=== PATIENT | male | born 1965 | race African-American/Black ===

== ENCOUNTER 2017-07-19 13:00 | Emergency (ER) | payer OTHER ==
[~2017-07-19] VITALS: Ht 180.3 cm; Wt 82.6 kg
[2017-07-19] MEDS ORDERED: SODIUM CHLORIDE 0.9% 1,000 ML IVB ONE (13:13)
[2017-07-19] MEDS ORDERED: PANTOPRAZOLE 40 MG/10 ML VIAL IV ONE (13:15)
[2017-07-19 14:05] LABS: Basophils # (auto) 0.1 uL; Basophils % (auto) 3.3 % (0.0-2.0); Eosinophils # (auto) 0 uL; Eosinophils % (auto) 0.7 % (0.0-7.0); Hematocrit 41.8 % (41.0-53.0); Hemoglobin 13.9 g/dL (13.5-17.5); Lymphocytes # (auto) 1.3 uL; Lymphocytes % (auto) 40.9 % (10.0-50.0); Mean Corpuscular Hemoglobin 30.2 pg (28.0-32.0); Mean Corpuscular Hgb Conc. 33.3 g/dL (32.0-36.0); Mean Corpuscular Volume 90.7 fL (80.0-100.0); Monocytes # (auto) 0.2 uL; Monocytes % (auto) 7.4 % (0.0-12.0); Neutrophils # (auto) 1.5 uL; Neutrophils % (auto) 47.7 % (37.0-80.0); Nucleated Red Blood Cells % 0.3 %; Platelet Count (auto) 175 10^3/uL (140-450); Red Cell Distribution Width 12.9 % (11.8-14.3); White Blood Cell 3.2 10^3/uL (4.4-10.8)
[2017-07-19 14:13] LABS: Alanine Aminotransferase 25 U/L (16-61); Albumin 4.4 g/dL (3.4-5.0); Alkaline Phosphatase 133 U/L (45-117); Anion Gap 9 (5-15); Aspartate Aminotransferase 33 U/L (15-37); BUN/Creatinine Ratio 9.8; Bilirubin, Total 1.1 mg/dL (0.2-1.0); Blood Urea Nitrogen 10 mg/dL (7-18); Calcium 9.2 mg/dL (8.5-10.1); Carbon Dioxide 27 mmol/L (21-32); Chloride 101 mmol/L (98-107); GFR African American 100 mL/min; GFR Non-African American 83 mL/min; Glucose 90 mg/dL (74-106); Magnesium 2.5 mg/dL (1.6-2.6); Potassium 4.1 mmol/L (3.5-5.1); Sodium 137 mmol/L (136-145); Total Protein 9.1 g/dL (6.4-8.2)
[2017-07-19 15:23] VITALS: BP 135/90
== END 2017-07-19 15:05 | disposition home or self-care (01) ==
LOC: EDBD 13:00 → ER 13:00 → EDSEX 13:00 → ER 15:05
DX: R07.89 Other chest pain (principal); I10 Essential (primary) hypertension
CPT/HCPCS: 36415; 71045; 80053; 83735; 83880; 84484; 85025; 93005; 94761